=== PATIENT | female | born 1980 | race Hispanic/Latino ===

== ENCOUNTER 2019-04-15 08:03 | Outpatient (CLI) | payer MEDICAID ==
--- NOTE | 2019-04-15 10:06 | RAD ---
EXAM: Two views chest PROVIDED CLINICAL HISTORY: +PPD. Positive . COMPARISON: None FINDINGS: Cardiac silhouette and pulmonary vasculature are within normal limits. The lungs are clear. The osse ous structures have a normal appearance. IMPRESSION: No acute cardiopulmonary process. No radiographic findings to suggest active tuberculosis on this exa m.
== END 2019-04-15 08:04 | disposition home or self-care (01) ==
LOC: BICRAD 08:03
PROVIDERS: ATTEND Family Medicine
DX: R76.11 Nonspecific reaction to tuberculin skin test without active tuberculosis (principal)
CPT/HCPCS: 71046